=== PATIENT | male | born 1950 | race Caucasian/White ===

== ENCOUNTER 2016-10-01 11:04 | Outpatient (CLI) | payer MEDICARE, OTHER ==
[~2016-10-01 11:04] MED LIST: AMLO10TA2 PO; BLOO-697 IN; CLOP75TA2 PO; GLIP5TAB21 PO; HYDR-552 PO; INSU100V7 SQ; METO50TA3 PO; OMEP40CA37 PO; SULF1TAB48 PO
== END 2016-10-01 23:59 | disposition home or self-care (01) ==
LOC: WOU 11:04
PROVIDERS: ATTEND Podiatrist Foot & Ankle Surgery
DX: E11.620 Type 2 diabetes mellitus with diabetic dermatitis (principal); E11.59 Type 2 diabetes mellitus with other circulatory complications; I87.322 Chronic venous hypertension (idiopathic) with inflammation of left lower extremity; R60.0 Localized edema; I25.2 Old myocardial infarction; E66.9 Obesity, unspecified; Z68.31 Body mass index [BMI] 31.0-31.9, adult; F17.200 Nicotine dependence, unspecified, uncomplicated; I10 Essential (primary) hypertension
CPT/HCPCS: G0463

== ENCOUNTER 2016-10-22 09:42 | Outpatient (CLI) | payer MEDICARE, OTHER | END 2016-10-22 23:59 | disposition home or self-care (01) | LOC: WOU 09:42 | PROVIDERS: ATTEND Podiatrist Foot & Ankle Surgery | DX: I87.322 Chronic venous hypertension (idiopathic) with inflammation of left lower extremity (principal); E11.59 Type 2 diabetes mellitus with other circulatory complications; L30.8 Other specified dermatitis; E66.9 Obesity, unspecified; Z68.31 Body mass index [BMI] 31.0-31.9, adult; I25.2 Old myocardial infarction; Z95.5 Presence of coronary angioplasty implant and graft; Z87.891 Personal history of nicotine dependence; Z88.0 Allergy status to penicillin | CPT/HCPCS: G0463 ==

== ENCOUNTER 2022-06-28 22:03 | Inpatient (IN) | payer MEDICARE, OTHER ==
[~2022-06-28] VITALS: Ht 160 cm; Wt 79.7 kg
[~2022-06-28 22:03] MED LIST changes: +AMLO-213 PO; -AMLO10TA2 PO; +CLOP75TA15 PO; -CLOP75TA2 PO; +GLIP10TA21 PO; -GLIP5TAB21 PO; +HYDR-4384 PO; -HYDR-552 PO; +METO50TA16 PO; -METO50TA3 PO; +OMEP40CA21 PO; -OMEP40CA37 PO
[2022-06-28] MEDS ORDERED: IPRATROPIUM NEB FS 0.5 MG/2.5 ML AMPUL.NEB NEB ONE (22:30)
[2022-06-28] MEDS ORDERED: ALBUTEROL FS 2.5 MG/3 ML VIAL.NEB NEB ONE (22:30)
[2022-06-28] MEDS ORDERED: ACETAMINOPHEN 325 MG TABLET PO ONE (22:30)
--- NOTE | 2022-06-28 22:30 | NUR ---
[id number]. SOB TODAY. NOTED PRODUCTIVE COUGHING, FEBRILE. PATIENT ALERT AND ORIENTED X3 BROUGHT IN BY STRETCHER IN BED 06 ON MONITOR AND POX, AWAITING MD MAJANO.
--- NOTE | 2022-06-28 22:34 | NUR ---
COVID SWAB COLLECTED
[2022-06-28] MEDS ORDERED: ACETAMINOPHEN ES 500 MG TABLET ONE (22:40)
--- NOTE | 2022-06-28 22:43 | NUR ---
XRAY AT BEDSIDE
--- NOTE | 2022-06-28 22:43 | NUR ---
BLOOD AND CULTURES COLLECTED AND SENT TO LAB
--- NOTE | 2022-06-28 22:43 | NUR ---
EMT AT BEDSIDE FOR EKG
--- NOTE | 2022-06-28 22:50 | NUR ---
[facility] ([facility] ) [phone]
[2022-06-28 22:51] LABS: BASOPHILS % (AUTO) 0.2 % (0.0-2.0); EOSINOPHILS % (AUTO) 0.6 % (0.0-6.0); HEMATOCRIT 38 % (39-51); HEMOGLOBIN 12.6 g/dL (13.5-17.5); LYMPHOCYTES # (AUTO) 0.6 K/uL (0.8-4.8); LYMPHOCYTES % (AUTO) 11.3 % (20.0-44.0); MEAN CORPUSCULAR HGB CONC 33 g/dl (31.0-36.0); MEAN CORPUSCULAR VOLUME 94 fL (80-96); MONOCYTES # (AUTO) 0.4 K/uL (0.1-1.30); MONOCYTES % (AUTO) 7.6 % (2.0-12.0); NEUTROPHILS % (AUTO) 80.3 % (43.0-81.0); PLATELET COUNT (AUTO) 82 K/uL (150-450); RED BLOOD CELL COUNT(AUTO) 4.02 MIL/uL (4.5-6.0)
[2022-06-28] MEDS ORDERED: ALBUTEROL FS 2.5 MG/3 ML VIAL.NEB ONE ×2 (22:53→23:07)
[2022-06-28] MEDS ORDERED: IPRATROPIUM NEB FS 0.5 MG/2.5 ML AMPUL.NEB ONE ×2 (22:53→23:07)
--- NOTE | 2022-06-28 23:09 | NUR ---
RT AT BEDSIDE
--- NOTE | 2022-06-28 23:10 | NUR ---
FLU SWAB DONE AND SENT TO LAB
[2022-06-28 23:29] LABS: CALCIUM, SERUM 8.1 mg/dL (8.5-10.1); CARBON DIOXIDE 26 mmol/L (21-32); CHLORIDE 102 mmol/L (98-107); CREATININE 1.3 mg/dL (0.6-1.3); GLUCOSE 186 mg/dL (74-106); POTASSIUM 3.9 mmol/L (3.5-5.1); SODIUM SERUM 136 mmol/L (136-145); UREA NITROGEN, BLOOD 16 mg/dL (7-18)
[2022-06-28] MEDS ORDERED: ALBUTEROL FS 2.5 MG/0.5 ML VIAL.NEB ONE (23:34)
[2022-06-28 23:36] LABS: ALANINE AMINOTRANSFERASE 159 U/L (12-78); ALBUMIN 3.4 g/dL (3.4-5.0); ALKALINE PHOSPHATASE 109 U/L (46-116); ASPARTATE AMINOTRANSFERASE 116 U/L (15-37); BILIRUBIN,DIRECT 0.2 mg/dL (0.0-0.2); BILIRUBIN,TOTAL 0.4 mg/dL (0.2-1.0); TOTAL PROTEIN, SERUM 6.1 g/dL (6.4-8.2)
--- NOTE | 2022-06-28 23:53 | NUR ---
URINE COLLECTED AND SENTT O LAB
[2022-06-29] MEDS ORDERED: ALBUTEROL FS 2.5 MG/0.5 ML VIAL.NEB NEB ONE
[2022-06-29] MEDS ORDERED: methylPREDNISolone SOD SUCC 125 MG/2ML VIAL IV ONE
[2022-06-29 00:51] LABS: BILIRUBIN,URINE NEGATIVE (NEGATIVE); COLOR,URINE YELLOW (YELLOW); LEUKOCYTE ESTERASE ,URINE NEGATIVE (NEGATIVE); NITRITE, URINE NEGATIVE (NEGATIVE); PH,URINE 5.5 (5.0-8.0); PROTEIN,URINE TRACE mg/dl (NEGATIVE); UGLUCOSE NEGATIVE (NEGATIVE); UROBILINOGEN,URINE 0.2 EU/dL (0.2)
[2022-06-29 00:57] LABS: BACTERIA,URINE Rare /HPF (None Seen); HYALINE CASTS, URINE Few /LPF (None Seen); SQUAMOUS EPITHELIAL CELL,UR Few /HPF (None Seen); WBC,URINE 0-2 /HPF (0-3)
[2022-06-29] MEDS ORDERED: methylPREDNISolone SOD SUCC 125 MG/2ML VIAL ONE (01:06)
--- NOTE | 2022-06-29 02:08 | NUR ---
[facility] PAGED
[2022-06-29] MEDS ORDERED: INSULIN REGULAR, HUMAN 100 UNIT/ML 3 ML VIAL SQ PRN (02:30)
[2022-06-29] MEDS ORDERED: DEXTROSE 50%-WATER 50 ML DISP.SYRIN IV PRN (02:30)
[2022-06-29] MEDS ORDERED: ALBUTEROL FS 2.5 MG/0.5 ML VIAL.NEB NEB PRN (02:30)
[2022-06-29] MEDS ORDERED: ACETAMINOPHEN 325 MG TABLET PO PRN (02:30)
[2022-06-29] MEDS ORDERED: *INSULIN REGULAR(HUMULIN R)HUM 100 UNIT/ML VIAL SQ PRN (02:30)
[2022-06-29] MEDS ORDERED: ONDANSETRON HCL/PF 4 MG/2 ML VIAL IVP PRN (02:30)
[2022-06-29] MEDS ORDERED: MORPHINE SULFATE INJ 2 MG/ML DISP.SYRIN IV PRN (02:30)
[2022-06-29 03:09] LABS: BAND % (MANUAL) 2 % (0.0-5.0); BASOPHILS % (MANUAL) 0 % (0.0-2.0); EOSINOPHILS % (MANUAL) 1 % (0-4); LYMPHOCYTES % (MANUAL) 13 % (16-48); MONOCYTES % (MANUAL) 6 % (0-11.0); NEUTROPHILS % (MANUAL) 78 (42-76)
--- NOTE | 2022-06-29 04:49 | NUR ---
REPORT GIVEN TO YANDEL TERAN
[2022-06-29 05:10] VITALS: BP 172/96
--- NOTE | 2022-06-29 05:15 | NUR ---
PATIENT TRANSFERRED UNDER ACLS
[2022-06-29 05:50] VITALS: BP 144/85
--- NOTE | 2022-06-29 05:53 | NUR ---
CIRCULAR KNITTERCUTTING MACHINE OPERATOR HELPER NOTE PATIENT ARRIVED FROM ER, YANDEL CAGE ASSISTED WITH TRANSLATION. PATIENT ALERT/ORIENTED X 4, PRIMARILY BULGARIAN SPEAKING BUT ABLE TO MAKE BASIC NEEDS KNOWN IN [place], PT STATES HE LIVES AT HOME WITH FAMILY. PT STABLE ON 2 LPM OF O2 VIA NASAL CANNULA, NO S/S OF DISTRESS OR SOB NOTED, BREATHING EVEN AND UNLABORED, SPO2: 97%, WHEEZING HEARD ON AUSCULTATION. PATIENT PLACED ON TELE MONITOR READING SINUS RHYTHM, HR: 68. PATIENT REFUSES COVID, FLU AND PNA VACCINES. IV ACCESS ON LAC #20G INTACT AND SALINE LOCKED. PATIENT HAS TOP AND BOTTOM DENTURES. PATIENT STATES HE'S A SMOKER AND DRINKS OCCASIONALLY. NO WOUNDS NOTED. PATIENT AMBULATED FROM DOOR TO BED WITH STEADY GAIT. ORIENTED PATIENT TO ROOM AND HOW TO USE CALL LIGHT. ALL BELONGINGS DOCUMENTED AND AND LIST PLACED IN CHART. SAFETY MEASURES IN PLACE : CALL LIGHT WITHIN REACH, SIDE RAILS UP X 2, BED LOCKED IN LOWEST POSITION, HOB ELEVATED, BED ALARM ON. WILL CONTINUE TO MONITOR PATIENT
[2022-06-29] MEDS ORDERED: IPRATROPIUM/ALBUTEROL INHALER IH SCH (06:00)
--- NOTE | 2022-06-29 07:00 | NUR ---
MS RN CLOSING NOTE PATIENT AWAKE IN BED, ALERT/ORIENTED X 1, PRIMARILY SPEAKS TAGALOG. PATIENT STABLE ON 2 LPM OF O2 VIA NASAL CANNULA (PATIENT REMOVES AT TIMES), NO S/S OF DISTRESS OR SOB NOTED, BREATHING EVEN AND UNLABORED. IV ACCESS ON RAC #20G INTACT AND INFUSING NS @ 75 ML/HR. PATIENT HAS GT FEEDING GLUCERNA 1.2 @ 20 ML/HR. MEDICATIONS GIVEN ORDERED, PT NEEDS MET THROUGHOUT SHIFT, NO N/V THIS SHIFT, PATIENT TURNED Q2H. SAFETY MEASURES IN PLACE: CALL LIGHT WITHIN REACH, SIDE RAILS UP X 3, BED LOCKED IN LOWEST POSITION, HOB ELEVATED, BED ALARM ON. WILL ENDORSE TO HUE RN FOR CONTINUITY OF CARE Addendum: 06/29/22 at 0703 by JEFFRY LYNN RN DISREGARD, WRONG PATIENT
--- NOTE | 2022-06-29 07:05 | NUR ---
EMPLOYEE BENEFITS SPECIALIST CLOSING NOTE PATIENT SLEEPING IN BED, ALERT/ORIENTED X 4, PRIMARILY [place]ANI SPEAKING. PATIENT STABLE ON 2 LPM OF O2 VIA NASAL CANNULA, NO S/S OF DISTRESS OR SOB NOTED, BREATHING EVEN AND UNLABORED. NO SIGNIFICANT CHANGES SINCE PATIENT ARRIVED ON FLOOR, BLOOD SUGAR 187 THIS AM, 3 UNITS INSULIN GIVEN PER SLIDING SCALE. PATIENT AMBULATORY. SAFETY MEASURES IN PLACE: CALL LIGHT WITHIN REACH, SIDE RAILS UP X 2, BED LOCKED IN LOWEST POSITION, HOB ELEVATED, BED ALARM ON. WILL CONTINUE TO MONITOR PATIENT
[2022-06-29] MEDS ORDERED: BLOOD SUGAR DIAGNOSTIC 1 EACH STRIP VI SCH (07:30)
--- NOTE | 2022-06-29 07:30 | NUR ---
RN OPENING NOTE RECEIVED PATIENT IN BED AWAKE, A/O X4, VERBALLY RESPONSIVE. NO SIGNS OF ACUTE DISTRESS NOTED. ON O2 INHALATION @2LPM VIA N/C, BREATHING EVEN AND UNLABORED. DENIES DIFFICULTY OF BREATHING. DENIES ANY PAIN OR DISCOMFORT AT THIS TIME. ON CARRIER LOADER SHOWING SINUS RHYTHM, HR @65. WITH IV ACCESS ON LEFT ANTECUBITAL AREA #20G, INTACT AND PATENT, SALINE LOCKED. SAFETY MEASURE IN PLACE. BED IN LOW AND LOCKED POSITION, SIDE RAILS UP X2, CALL LIGHT PLACED WITHIN EASY REACH. WILL CONTINUE TO MONITOR PATIENT.
[2022-06-29] MEDS: ALBUTEROL FS 2.5 MG/0.5 ML VIAL.NEB NEB SCH ×2 (07:35→13:30)
[2022-06-29] MEDS: IPRATROPIUM NEB FS 0.5 MG/2.5 ML AMPUL.NEB IH SCH ×2 (07:35→13:30)
[2022-06-29 08:33] VITALS: BP 160/63
[2022-06-29] MEDS ORDERED: METOPROLOL TARTRATE 50 MG TABLET PO SCH (09:00)
[2022-06-29] MEDS ORDERED: CLOPIDOGREL BISULFATE 75 MG TABLET PO SCH (09:00)
[2022-06-29] MEDS ORDERED: ENOXAPARIN SODIUM 40 MG/0.4 ML DISP.SYRIN SQ SCH (09:00)
[2022-06-29] MEDS ORDERED: AMLODIPINE BESYLATE 10 MG TABLET PO SCH (09:00)
--- NOTE | 2022-06-29 09:35 | NUR ---
RN NOTE RECEIVED A CALL FROM PATIENT'S SON SIDNEY AND INFORMED THE EARTH SCIENCE FACULTY MEMBER THAT HE'S ON HIS WAY TO TAKE HIS FATHER OUT OF THE HOSPITAL. SON SAID THAT HE IS GOING TO TAKE HIS FATHER TO HIS CALL CENTER DIRECTOR BECAUSE THEY TOLD HIM THAT HE HAS A PROBLEM WITH HIS HEART. SON DOESN'T WANT TO CONTINUE MEDICAL TREATMENT IN THIS HOSPITAL. CN MADE AWARE.
--- NOTE | 2022-06-29 11:32 | NUR ---
RN NOTE PATIENT'S DAUGHTER IN LAW AND CAME TO TAKE PATIENT AND LEAVE AGAINST MEDICAL ADVICE. FAMILY DOESN'T WANT TO CONTINUE MEDICAL TREATMENT HERE IN THE HOSPITAL, FAMILY SAID THEY'LL TAKE HIM TO [facility] WHERE HIS CABLE WIRER IS. EXPLAINED RISKS OF LEAVING AGAINST MEDICAL ADVICE TO DAUGHTER AND PATIENT INCLUDING BUT NOT LIMITED TO COMPLICATIONS, PERMANENT DISABLITY AND . PATIENT AND DAUGHTER VERBALIZED UNDERSTANDING. AMA FORM SIGNED BY PATIENT'S DAUGHTER. IV LINE REMOVED, NO BLEEDING NOTED. PRESURE DRESSING APPLIED TO SITE. ARM NAMEBAND REMOVED. CN AND MADE AWARE. PATIENT AND LEFT UNIT WITH DAUGHTER AND @7035, RAMONA ACCOMPANIED PATIENT TO THE LOBBY. LEFT VIA PRIVATE CAR.
[2022-06-29] MEDS ORDERED: LEVOFLOXACIN (250MG) 250 MG TABLET PO SCH (12:30)
== END 2022-06-29 11:25 | disposition left against medical advice (07) | DRG 193 ==
LOC: ER 22:12 → TELE 06-29 04:43
PROVIDERS: ADMIT Nurse Practitioner Acute Care; ATTEND Nurse Practitioner Acute Care
DX: J15.9 Unspecified bacterial pneumonia (principal); I50.33 Acute on chronic diastolic (congestive) heart failure; J44.0 Chronic obstructive pulmonary disease with (acute) lower respiratory infection; J44.1 Chronic obstructive pulmonary disease with (acute) exacerbation; J45.901 Unspecified asthma with (acute) exacerbation; I11.0 Hypertensive heart disease with heart failure; Z20.822 Contact with and (suspected) exposure to COVID-19; Z95.1 Presence of aortocoronary bypass graft; I25.10 Atherosclerotic heart disease of native coronary artery without angina pectoris; E11.51 Type 2 diabetes mellitus with diabetic peripheral angiopathy without gangrene; Z88.0 Allergy status to penicillin; Z79.4 Long term (current) use of insulin; Z79.84 Long term (current) use of oral hypoglycemic drugs; Z79.02 Long term (current) use of antithrombotics/antiplatelets; Z79.899 Other long term (current) drug therapy; I25.2 Old myocardial infarction; J20.9 Acute bronchitis, unspecified; Z98.62 Peripheral vascular angioplasty status; Z82.49 Family history of ischemic heart disease and other diseases of the circulatory system; F17.200 Nicotine dependence, unspecified, uncomplicated; E66.9 Obesity, unspecified; Z98.61 Coronary angioplasty status; R74.01 Elevation of levels of liver transaminase levels; Z28.310 Unvaccinated for COVID-19; G47.33 Obstructive sleep apnea (adult) (pediatric); D69.6 Thrombocytopenia, unspecified
CPT/HCPCS: 36415; 71045-TC; 80048-TC; 80076-TC; 81001; 82962-TC; 83605-TC; 83880; 84484-TC; 85025-TC; 87040-TC; C9803; G0378; J1650; J1815; J2930